=== PATIENT | female | born 1990 | race Caucasian/White ===

== ENCOUNTER 2017-11-08 04:45 | Emergency (ER) | payer SELFPAY ==
[~2017-11-08] VITALS: Ht 152.4 cm; Wt 65.8 kg
[2017-11-08] MEDS ORDERED: PROZAC10 MG ORAL (04:52)
[2017-11-08] MEDS ORDERED: TRAZODONE HCL150 MG ORAL (04:52)
[2017-11-08 04:56] VITALS: BP 112/70
--- NOTE | 2017-11-08 05:00 | Emergency Room Report ---
History of Present Illness General Chief Complaint: Medical Clearance Source: Patient Present Illness HPI Is a 27-year-old female with history of depression. She is brought in police for evaluation. She says she did not take her antidepressant tonight. Said that she felt suicidal after being arrested. No other complaint. Allergies: Coded Allergies: No Known Allergies (Unverified , 11/08/17) Patient History Past Medical History: see triage record, old chart reviewed, psych hx Past Surgical History: none Pertinent Family History: none Social History: Denies: smoking Last Menstrual Period: now Now: No Immunizations: other Reviewed Nursing Documentation: PMH: Agreed; PSxH: Agreed Nursing Documentation-PMH Past Medical History: No History, Except For History Of Psychiatric Problem: Yes Review of Systems Eye: Denies: eye pain, blurred vision ENT: Denies: ear pain, nose congestion, throat swelling Respiratory: Denies: cough, shortness of breath Cardiovascular: Denies: chest pain, palpitations Gastrointestinal: Denies: abdominal pain, diarrhea, nausea, vomiting Musculoskeletal: Denies: back pain, joint pain Skin: Denies: rash Neurological: Denies: headache, numbness Endocrine: Denies: increased thirst, increased urine Hematologic/Lymphatic: Denies: easy bruising All Other Systems: negative except mentioned in HPI Physical Exam Vital Signs Date Time Temp Pulse Resp B/P (MAP) Pulse Ox O2 Delivery O2 Flow Rate FiO2 11/08/17 04:49 98.1 96 16 112/70 99 Room Air 98.1 vitals normal Sp02 EP Interpretation: reviewed, normal General Appearance: normal inspection, well appearing, no apparent distress, alert, GCS 15 ENT: hearing grossly normal, normal voice Neck: supple Respiratory: no respiratory distress Cardiovascular #1: no edema Gastrointestinal: non-distended Musculoskeletal: gait/station normal Neurologic: alert, oriented x3 Skin: normal color Medical Decision Making Diagnostic Impression: Primary Impression: Medical clearance for incarceration ER Course Patient here for medical clearance for booking. No trauma. Will discharge to police. Last Vital Signs Date Time Temp Pulse Resp B/P (MAP) Pulse Ox O2 Delivery O2 Flow Rate FiO2 11/08/17 04:49 98.1 96 16 112/70 99 Room Air 98.1 Status: unchanged Disposition: D/C TO LAW ENFORCEMENT IN [facility] Condition: Stable Additional Instructions: Follow up with your doctor in 7 days. Abstain from drinking and driving. Return if worse. JAVIER PASTOR M.D. Nov 08, 2017 05:00
[2017-11-08 05:03] VITALS: BP 112/70
== END 2017-11-08 05:00 ==
LOC: EMR 05:00
DX: F32.9 Major depressive disorder, single episode, unspecified (principal)
CPT/HCPCS: 99283